=== PATIENT | female | born 1980 | race African-American/Black ===

== ENCOUNTER 2017-03-05 01:02 | Emergency (ER) | payer OTHER, MEDICAID ==
[2017-03-05 04:41] VITALS: BP 117/70
== END 2017-03-05 03:48 | disposition home or self-care (01) ==
LOC: ED 01:02
DX: S39.012A Strain of muscle, fascia and tendon of lower back, initial encounter (principal); R35.0 Frequency of micturition; X58.XXXA Exposure to other specified factors, initial encounter; Y93.89 Activity, other specified; Y99.8 Other external cause status; Y92.89 Other specified places as the place of occurrence of the external cause
CPT/HCPCS: 82962; J1885